=== PATIENT | male | born 1995 | race American Indian/Alaskan Native ===

== ENCOUNTER 2017-02-06 00:10 | Emergency (ER) | payer MEDICAID, OTHER ==
[2017-02-06 00:36] LABS: Basophils % (Auto) 0.9 % (0.0-1.8); Eosinophils % (Auto) 0.7 % (0.0-4.3); Hematocrit 48.4 % (35.5-45.6); Hemoglobin 15.8 gm/dl (11.8-15.2); Mean Corpuscular HGB Conc 33 % (32-34); Mean Corpuscular Hemoglobin 27 pg (28-32); Mean Corpuscular Volume 84 fl (84-94); Platelet Count 260 K/mm3 (140-440); Red Blood Count 5.74 M/mm3 (3.65-5.03)
[2017-02-06] MEDS ORDERED: ATIVAN IM PRN (00:47)
--- NOTE | 2017-02-06 00:49 | Emergency Department Report ---
ED General Adult HPI - General Chief complaint: Psych Stated complaint: MH EVAL Time Seen by Provider: 02/06/17 00:40 Source: patient, RN notes reviewed Mode of arrival: Ambulatory Limitations: Other (patient is disorganized. The patient is a poor historian. No family is available for collateral history at this time.) - History of Present Illness Initial comments: This is a 22-year-old male. He is previously unknown to me. Presents to the ER for psychiatric issues. Patient admitted to suicidality, self-harm, self biting. The patient is quite evasive with most questions. Indicates no headache, neck pain, chest pain, abdominal pain or shortness of breath. He cannot describe a lot describe exacerbating factors. He will not answer questions about whether or not he has access to guns or firearms, and he also will not answer questions about intentional overdose. He will not answer questions about exacerbating or relieving factors. -: unknown Severity scale (0 -10): 0 Consistency: constant Improves with: none Worsens with: none Associated Symptoms: denies: chest pain, cough - Related Data Home Medications Medication Instructions Recorded Confirmed Last Taken No Known Home Medications [No 02/06/17 02/06/17 Unknown Reported Home Medications] Allergies Allergy/AdvReac Type Severity Reaction Status Date / Time No Known Allergies Allergy Unverified 02/14/14 11:25 ED Review of Systems ROS: Stated complaint: MH EVAL Other details as noted in HPI Constitutional: denies: fever Eyes: denies: eye discharge ENT: denies: epistaxis Respiratory: denies: cough Cardiovascular: denies: chest pain Gastrointestinal: denies: abdominal pain Genitourinary: as per HPI Musculoskeletal: as per HPI Skin: as per HPI Neurological: as per HPI Psychiatric: as per HPI ED Past Medical Hx - Past Medical History Previous Medical History?: Yes Hx Psychiatric Treatment: Yes - Surgical History Past Surgical History?: No - Social History Smoking Status: Never Smoker Substance Use Type: None - Medications Home Medications: Home Medications Medication Instructions Recorded Confirmed Last Taken Type No Known Home Medications [No 02/06/17 02/06/17 Unknown History Reported Home Medications] ED Physical Exam - General Limitations: No Limitations, Other (the patient is rambling, disorganized. Appears to be acutely psychotic) General appearance: alert, in no apparent distress - Head Head exam: Present: atraumatic, normocephalic - Eye Eye exam: Present: normal appearance, EOMI. Absent: nystagmus - ENT ENT exam: Present: normal exam, normal orophraynx, mucous membranes moist, normal external ear exam - Neck Neck exam: Present: normal inspection, full ROM. Absent: tenderness, meningismus - Respiratory Respiratory exam: Present: normal lung sounds bilaterally. Absent: respiratory distress, wheezes, rales, rhonchi, stridor, chest wall tenderness, accessory muscle use, decreased breath sounds, prolonged expiratory - Cardiovascular Cardiovascular Exam: Present: regular rate, normal rhythm, normal heart sounds. Absent: bradycardia, tachycardia, irregular rhythm, systolic murmur, diastolic murmur, rubs, gallop - GI/Abdominal GI/Abdominal exam: Present: soft, normal bowel sounds. Absent: distended, tenderness, guarding, rebound, rigid, pulsatile mass - Rectal Rectal exam: Present: deferred - Extremities Exam Extremities exam: Present: normal inspection, full ROM, normal capillary refill , other (there is no evidence of blunt or penetrating trauma to the hands, fingers or upper or lower extremities. No specific bite kirby are noted. The compartments are soft. 2+ pulses are noted in 4 extremities.). Absent: tenderness, pedal edema, joint swelling, calf tenderness - Back Exam Back exam: Present: normal inspection, full ROM. Absent: tenderness, CVA tenderness (R), CVA tenderness (L), muscle spasm, paraspinal tenderness, vertebral tenderness - Neurological Exam Neurological exam: Present: alert, normal gait, other (Extraocular movements intact. Tongue midline. No facial droop. Facial sensation intact to light touch in the V1, V2, V3 distribution bilaterally. 5 and 5 strength in 4 extremities.. Sensation is intact to light touch in 4 extremities.). Absent: motor sensory deficit - Psychiatric Psychiatric exam: Present: agitated - Skin Skin exam: Present: warm, dry, intact, normal color. Absent: rash ED Course Vital Signs 02/06/17 02/06/17 00:15 00:56 Temperature 98.1 F Pulse Rate 95 H Respiratory 18 20 Rate Blood Pressure 141/97 [Right] O2 Sat by Pulse 100 Oximetry - Reevaluation(s) Reevaluation #1: 02/06/17 01:35 Differential diagnosis: Mood disorder, medical clearance for psychiatric placement Assessment and plan: 22-year-old male with decompensated psychiatric illness. GCS of 15, NIH score of 0, physical exam unremarkable. No obvious evidence of blunt or penetrating trauma. There is specifically no evidence of finger biting , or lacerations to the upper extremities. Laboratory studies reviewed and are unremarkable. The nurses trying to reconcile his medications. At this point in time, I see no immediate medical contraindication to psychiatric admission/ evaluation and/or placement. The crisis team was informed. ED Medical Decision Making - Lab Data Result diagrams: 02/06/17 00:21 02/06/17 00:21 Vital Signs 02/06/17 02/06/17 00:15 00:56 Temperature 98.1 F Pulse Rate 95 H Respiratory 18 20 Rate Blood Pressure 141/97 [Right] O2 Sat by Pulse 100 Oximetry Lab Results 02/06/17 02/06/17 02/06/17 Range/Units 00:21 00:21 00:21 WBC 13.0 H (4.5-11.0) K/mm3 RBC 5.74 H (3.65-5.03) M/mm3 Hgb 15.8 H (11.8-15.2) gm/dl Hct 48.4 H (35.5-45.6) % MCV 84 (84-94) fl MCH 27 L (28-32) pg MCHC 33 (32-34) % RDW 14.0 (13.2-15.2) % Plt Count 260 (140-440) K/mm3 Lymph % (Auto) 21.4 (13.4-35.0) % [place] % (Auto) 8.4 H (0.0-7.3) % Eos % (Auto) 0.7 (0.0-4.3) % Baso % (Auto) 0.9 (0.0-1.8) % Lymph # 2.8 (1.2-5.4) K/mm3 [place] # 1.1 H (0.0-0.8) K/mm3 Eos # 0.1 (0.0-0.4) K/mm3 Baso # 0.1 (0.0-0.1) K/mm3 Seg Neutrophils % 68.6 (40.0-70.0) % Seg Neutrophils # 9.0 H (1.8-7.7) K/mm3 Sodium 140 (137-145) mmol/L Potassium 3.7 (3.6-5.0) mmol/L Chloride 100.4 (98-107) mmol/L Carbon Dioxide 22 (22-30) mmol/L Anion Gap 21 mmol/L BUN 10 (9-20) mg/dL Creatinine 0.6 L (0.8-1.5) mg/dL Estimated GFR > 60 ml/min BUN/Creatinine Ratio 16.66 % Glucose 101 H (75-100) mg/dL Calcium 8.7 (8.4-10.2) mg/dL Salicylates (2.8-20.0) mg/dL Acetaminophen (10.0-30.0) ug/mL Plasma/Serum Alcohol < 0.01 (0-0.07) gm% 02/06/17 02/06/17 Range/Units 00:21 00:21 WBC (4.5-11.0) K/mm3 RBC (3.65-5.03) M/mm3 Hgb (11.8-15.2) gm/dl Hct (35.5-45.6) % MCV (84-94) fl MCH (28-32) pg MCHC (32-34) % RDW (13.2-15.2) % Plt Count (140-440) K/mm3 Lymph % (Auto) (13.4-35.0) % [place] % (Auto) (0.0-7.3) % Eos % (Auto) (0.0-4.3) % Baso % (Auto) (0.0-1.8) % Lymph # (1.2-5.4) K/mm3 [place] # (0.0-0.8) K/mm3 Eos # (0.0-0.4) K/mm3 Baso # (0.0-0.1) K/mm3 Seg Neutrophils % (40.0-70.0) % Seg Neutrophils # (1.8-7.7) K/mm3 Sodium (137-145) mmol/L Potassium (3.6-5.0) mmol/L Chloride (98-107) mmol/L Carbon Dioxide (22-30) mmol/L Anion Gap mmol/L BUN (9-20) mg/dL Creatinine (0.8-1.5) mg/dL Estimated GFR ml/min BUN/Creatinine Ratio % Glucose (75-100) mg/dL Calcium (8.4-10.2) mg/dL Salicylates < 0.3 L (2.8-20.0) mg/dL Acetaminophen < 15.0 (10.0-30.0) ug/mL Plasma/Serum Alcohol (0-0.07) gm% Critical care attestation.: If time is entered above; I have spent that time in minutes in the direct care of this critically ill patient, excluding procedure time. ED Disposition Clinical Impression: Mood disorder Disposition: DC/TX PSY HOSP/PSY UNIT Is pt being admited?: No Does the pt Need Aspirin: No Condition: Stable
[2017-02-06 00:56] LABS: Anion Gap 21 mmol/L; BUN/Creatinine Ratio 16.66; Blood Urea Nitrogen 10 mg/dL (9-20); Calcium 8.7 mg/dL (8.4-10.2); Carbon Dioxide 22 mmol/L (22-30); Chloride 100.4 mmol/L (98-107); Glucose 101 mg/dL (75-100); Potassium 3.7 mmol/L (3.6-5.0); Sodium 140 mmol/L (137-145)
[2017-02-06 01:31] LABS: Urine Drugs of Abuse Note Disclamer
[2017-02-06 01:48] LABS: Bacteria,Urine 1+ /HPF (Negative); Bilirubin,Urine NEG (Negative); Blood,Urine NEG (Negative); Ketones,Urine NEG (Negative); Leukocyte Esterase,Urine NEG (Negative); Mucus,Urine 3+ /HPF; Nitrite,Urine NEG (Negative); Protein,Urine <15 mg/dL mg/dL (Negative); RBC,Urine < 1.0 /HPF (0.0-6.0)
--- NOTE | 2017-02-06 11:09 | Consultation ---
History of Present Illness - Reason for Consult Consult date: 02/06/17 Reason for consult: psychiatric consult - Chief Complaint Chief complaint: "I need psychiatric care" 22 year old black male seen in the ER for psychiatric evaluation. He reports that he came to the hospital on his own because of problems with anger and suicidal ideation. His responses to most questions were vague. He acknowledges paranoia. He says everyone is against him. He reports that his family uses him for his check. He reports having suicidal thoughts prior to arrival to the hospital. He is currently on 1013. He denies being on psychiatric medications currently. Denies current psychiatric treatment. He denies auditory or visual hallucinations. He reports a history of bipolar disorder. Medications and Allergies Allergies Allergy/AdvReac Type Severity Reaction Status Date / Time No Known Allergies Allergy Unverified 02/14/14 11:25 Home Medications Medication Instructions Recorded Confirmed Last Taken Type No Known Home Medications [No 02/06/17 02/06/17 Unknown History Reported Home Medications] Active Meds: Active Medications Lorazepam (Ativan) 2 mg IM Q4HR PRN PRN Reason: Agitation Past psychiatric history - Past Medical History Past Medical History: other (denies) Past Surgical History: Other (denies, then states "hasn't everybody had surgery ") - past Psychiatric treatment and history Psych: Bipolar psychiatric treatment history: Unable to obtain information - Social History Social history: single, lives with family, other (denies alcohol and illicit substance use) Mental Status Exam - Vital signs Last Vital Signs Temp 97.9 F 02/06/17 09:33 Pulse 79 02/06/17 09:33 Resp 18 02/06/17 09:33 BP 136/79 02/06/17 09:33 Pulse Ox 98 02/06/17 09:33 - Exam Orientation: time, place, person Affect: depressed, anxious Mood: anxious Thought content: paranoia Thought Process: Circumstantial, Tangential Perceptions: other (denies) Speech: slow Concentration: distractible Motor activity: restless Level of consciousness: alert Sleep Symptoms: None Interaction: irritable (he appeared to be cooperative but had difficulty answering questions or responded with another questionable or vague response) Results Result Diagrams: 02/06/17 00:21 02/06/17 00:21 Abnormal lab results 02/06/17 02/06/17 02/06/17 Range/Units 00:21 00:21 00:21 WBC 13.0 H (4.5-11.0) K/mm3 RBC 5.74 H (3.65-5.03) M/mm3 Hgb 15.8 H (11.8-15.2) gm/dl Hct 48.4 H (35.5-45.6) % MCH 27 L (28-32) pg [place] % (Auto) 8.4 H (0.0-7.3) % [place] # 1.1 H (0.0-0.8) K/mm3 Seg Neutrophils # 9.0 H (1.8-7.7) K/mm3 Creatinine 0.6 L (0.8-1.5) mg/dL Glucose 101 H (75-100) mg/dL Ur Specific [place] (1.003-1.030) Salicylates < 0.3 L (2.8-20.0) mg/dL 02/06/17 Range/Units 00:55 WBC (4.5-11.0) K/mm3 RBC (3.65-5.03) M/mm3 Hgb (11.8-15.2) gm/dl Hct (35.5-45.6) % MCH (28-32) pg [place] % (Auto) (0.0-7.3) % [place] # (0.0-0.8) K/mm3 Seg Neutrophils # (1.8-7.7) K/mm3 Creatinine (0.8-1.5) mg/dL Glucose (75-100) mg/dL Ur Specific [place] 1.031 H (1.003-1.030) Salicylates (2.8-20.0) mg/dL All other labs normal. Assessment and Plan Assessment and plan: Impression: Bipolar disorder with psychotic features Recommendation: 1013 and transferred to inpatient psychiatric facility for concerns with suicidal ideation and paranoia Collateral is needed since he lives with his family and has complaints about them. We will attempt to determine past medication trials.
[2017-02-06 20:15] VITALS: BP 144/93
== END 2017-02-07 00:20 ==
LOC: EEVIPCON 00:10 → ED 00:10
DX: F39 Unspecified mood [affective] disorder (principal)
CPT/HCPCS: 36415; 80048; 80307; 81001; 85025; 99285; G0480; 80320